=== PATIENT | male | born 1995 | race Caucasian/White ===

== ENCOUNTER 2019-06-28 10:34 | Emergency (ER) | payer MEDICARE ==
[~2019-06-28] VITALS: Ht 188 cm; Wt 104.3 kg
[2019-06-28 10:55] VITALS: BP 128/83
== END 2019-06-28 12:15 | disposition home or self-care (01) ==
LOC: ER 10:34
DX: G40.909 Epilepsy, unspecified, not intractable, without status epilepticus (principal); Z76.0 Encounter for issue of repeat prescription